=== PATIENT | male | born 1990 | race Caucasian/White ===

== ENCOUNTER 2017-02-24 21:24 | Emergency (ER) | payer MEDICAID ==
[~2017-02-24] VITALS: Ht 175.3 cm; Wt 100.0 kg
[~2017-02-24 21:24] MED LIST: KEPPRA500 MG PO; LEVETIRACETAM500 M1 PO; ZITHROMAX200 MG/5 M PO
[2017-02-24 22:19] LABS: HEMATOCRIT 58.4 % (39.0-50.0); HEMOGLOBIN 18.7 g/dl (14.0-18.0); IMMATURE GRANULOCYTES 4.7 % (0.0-1.0); MEAN CELL VOLUME 91.1 fL CALC (80.0-100.0); MEAN CORPUSCULAR HGB 29.2 pG CALC (26.0-32.0); NEUT# 20.48 thou/uL (1.82-7.42); RED BLOOD COUNT 6.41 mill/uL (4.70-6.10); RED CELL DISTRI WIDTH 12.1 % (11.5-15.5)
[2017-02-24 22:21] LABS: ALBUMIN 4.2 g/dL (3.2-5.0); BILIRUBIN, TOTAL 0.5 mg/dL (0.0-1.4); CALCIUM 9.6 mg/dL (8.4-10.2); CREATININE 1.8 mg/dL (0.7-1.3); TOTAL PROTEIN 6.8 g/dL (6.3-8.2)
[2017-02-24 22:26] LABS: POTASSIUM 5.2 mmol/l (3.5-5.1)
[2017-02-24 23:02] LABS: URINE BILIRUBIN - DIPSTICK NEGATIVE (NEGATIVE); URINE BLOOD DIPSTICK LARGE (NEGATIVE); URINE CLARITY SLIGHT CLOUDY; URINE COLOR YELLOW; URINE GLUCOSE - DIPSTICK NEGATIVE (NEGATIVE); URINE KETONE NEGATIVE (NEGATIVE); URINE LEUK ESTERASE NEGATIVE (NEGATIVE); URINE NITRITE - DIPSTICK NEGATIVE (Negative); URINE PH 5.5 (4.5-8.0); URINE PROTEIN - DIPSTICK 100 mg/dL (NEG-TRACE); URINE SPECIFIC GRAVITY >=1.030; URINE UROBILINOGEN - DIPSTICK 0.2 E.U./dL (0.2)
[2017-02-24 23:05] LABS: BARBITURATES NEGATIVE (NEGATIVE); COCAINE NEGATIVE (NEGATIVE); METHADONE NEGATIVE (NEGATIVE); OXCYCODONE NEGATIVE (NEGATIVE); TETRAHYDROCANNABIONOL NEGATIVE (NEGATIVE); TRICYLIC ANTIDEPRESSANTS NEGATIVE (NEGATIVE)
[2017-02-24 23:11] LABS: URINE BACTERIA FEW hpf; URINE COARSE GRANULAR CAST FEW lpf; URINE FINE GRAN CAST FEW lpf; URINE SQUAMOUS EPITHELIAL CELL FEW EPI/hpf (0-FEW); URINE WBC 0-2 WBC/hpf (0-5)
[2017-02-24 23:40] VITALS: BP 124/57
== END 2017-02-24 23:40 | disposition short-term general hospital (02) | DRG 100 ==
LOC: ED 21:24
PROVIDERS: Emergency Medicine
PROC: 0T9B70Z Drainage of Bladder with Drainage Device, Via Natural or Artificial Opening (ICD-10-PCS; principal; 2017-02-24)
PROC: 0BH17EZ Insertion of Endotracheal Airway into Trachea, Via Natural or Artificial Opening (ICD-10-PCS; 2017-02-24)
DX: G40.909 Epilepsy, unspecified, not intractable, without status epilepticus (principal); J96.90 Respiratory failure, unspecified, unspecified whether with hypoxia or hypercapnia; E87.2 Acidosis; I95.9 Hypotension, unspecified; Q04.6 Congenital cerebral cysts; D72.829 Elevated white blood cell count, unspecified; R79.89 Other specified abnormal findings of blood chemistry; R00.0 Tachycardia, unspecified; H54.8 Legal blindness, as defined in USA
CPT/HCPCS: J1953; J2060; S0164

== ENCOUNTER → 2018-07-23 | Outpatient (REF) | payer MEDICAID | END | disposition home or self-care (01) | LOC: LABSPEC 11:30 | PROVIDERS: ATTEND Psychiatry & Neurology Neurology with Special Qualifications in Child Neurology | DX: G40.814 Lennox-Gastaut syndrome, intractable, without status epilepticus (principal) ==

== ENCOUNTER → 2018-08-01 | Outpatient (REF) | payer MEDICAID ==
[2018-08-01 17:49] LABS: BILIRUBIN, TOTAL 0.7 mg/dL (0.0-1.4)
== END | disposition home or self-care (01) ==
LOC: LABSPEC 16:58
PROVIDERS: ATTEND Psychiatry & Neurology Neurology with Special Qualifications in Child Neurology
DX: G40.309 Generalized idiopathic epilepsy and epileptic syndromes, not intractable, without status epilepticus (principal)

== ENCOUNTER 2021-09-19 06:17 | Emergency (ER) | payer MEDICAID ==
[2021-09-19] VITALS (7 sets, daily range): BP systolic 116–141; BP diastolic 66–102
[~2021-09-19] VITALS: Ht 175.3 cm; Wt 97.5 kg
[2021-09-19 06:47] LABS: IMMATURE GRANULOCYTES 0.8 % (0.0-5.0); MEAN CELL VOLUME 90.8 fL CALC (80.0-100.0); MEAN CORPUSCULAR HGB 30.3 pG CALC (26.0-32.0); MEAN CORPUSCULAR HGB CONC 33.3 g/dL CAL (32.0-36.0); NEUT# 8.23 thou/uL (1.82-7.42); RED BLOOD COUNT 6.28 mill/uL (4.70-6.10); RED CELL DISTRI WIDTH 12.5 % (11.5-15.5)
[2021-09-19 07:45] LABS: ALBUMIN 4.4 g/dL (3.2-5.0); ALKALINE PHOSPHATASE 84 u/l (38-126); ANION GAP 17 (6-22 (CALC)); BILIRUBIN, TOTAL 0.5 mg/dL (0.0-1.4); BUN 19 mg/dL (9-20); BUN/CREATININE RATIO 19 (12-20 (CALC)); CARBON DIOXIDE 20 mmol/l (22-30); CHLORIDE 107 mmol/l (95-108); GFR > 60 ML/MIN (>=60 (CALC)); GFR FOR AFR.AMER. > 60 ML/MIN (>=60 (CALC)); POTASSIUM 4.1 mmol/l (3.5-5.1); SODIUM 140 mmol/l (137-146); TOTAL PROTEIN 7.5 g/dL (6.3-8.2)
[2021-09-19 07:52] LABS: SGOT/AST 42 u/l (17-59)
--- NOTE | 2021-09-21 08:13 | NUR ---
PRELIMINARY BC SHOWS GRAM (+) COCCI IN 1/ VIALS. RESULTS REPORTED TO DR WITT. WILL FOLLOW UP WHEN FINAL RESULTS AVAILABLE.
--- NOTE | 2021-09-22 14:34 | NUR ---
FINAL RESULTS CALED TO , 1 VIAL GROWING STREPTOCOCCUS PNEUMONIAE. A MESSAGE WAS LEFT WITH THE NUMBER ON FILE TO BRING THE PATIENT BACK TO THE ER FOR TREATMENT.
--- NOTE | 2021-09-22 15:20 | NUR ---
PATIENTS MOTHER CALLED BACK AND WILL BRING HIM TO ER.
== END 2021-09-19 08:21 | disposition home or self-care (01) ==
LOC: ED 06:17
PROVIDERS: Emergency Medicine
DX: G40.409 Other generalized epilepsy and epileptic syndromes, not intractable, without status epilepticus (principal); R73.9 Hyperglycemia, unspecified
CPT/HCPCS: J1953

== ENCOUNTER 2021-09-22 15:22 | Emergency (ER) | payer MEDICAID ==
[~2021-09-22] VITALS: Ht 172.7 cm; Wt 89.3 kg
[2021-09-22] VITALS (10 sets, daily range): BP systolic 108–132; BP diastolic 72–89
[2021-09-22 16:18] LABS: HEMATOCRIT 51.3 % (39.0-50.0); HEMOGLOBIN 17.1 g/dl (14.0-18.0); IMMATURE GRANULOCYTES 1.1 % (0.0-5.0); MEAN CELL VOLUME 90.3 fL CALC (80.0-100.0); MEAN CORPUSCULAR HGB 30.1 pG CALC (26.0-32.0); MEAN CORPUSCULAR HGB CONC 33.3 g/dL CAL (32.0-36.0); NEUT# 6.58 thou/uL (1.82-7.42); RED BLOOD COUNT 5.68 mill/uL (4.70-6.10)
[2021-09-22 16:28] LABS: ALBUMIN 3.8 g/dL (3.2-5.0); ALKALINE PHOSPHATASE 65 u/l (38-126); ANION GAP 13 (6-22 (CALC)); BILIRUBIN, TOTAL 0.7 mg/dL (0.0-1.4); BUN 11 mg/dL (9-20); BUN/CREATININE RATIO 12 (12-20 (CALC)); CARBON DIOXIDE 22 mmol/l (22-30); CHLORIDE 107 mmol/l (95-108); CREATININE 0.9 mg/dL (0.7-1.3); GFR > 60 ML/MIN (>=60 (CALC)); GFR FOR AFR.AMER. > 60 ML/MIN (>=60 (CALC)); POTASSIUM 3.4 mmol/l (3.5-5.1); SGOT/AST 26 u/l (17-59); SODIUM 140 mmol/l (137-146); TOTAL PROTEIN 6.8 g/dL (6.3-8.2)
[2021-09-22] MEDS ORDERED: OMNICEF250 MG/5 M PO (18:26)
[2021-09-22] MEDS ORDERED: VIBRAMYCIN25 MG/5 ML PO (18:26)
== END 2021-09-22 20:00 | disposition home or self-care (01) ==
LOC: ED 15:22
PROVIDERS: Nurse Practitioner
DX: J20.9 Acute bronchitis, unspecified (principal); R78.81 Bacteremia; F20.9 Schizophrenia, unspecified; G40.909 Epilepsy, unspecified, not intractable, without status epilepticus; Q04.6 Congenital cerebral cysts; Z20.822 Contact with and (suspected) exposure to COVID-19

== ENCOUNTER 2022-12-31 00:51 | Emergency (ER) | payer MEDICAID ==
[~2022-12-31] VITALS: Ht 172.7 cm; Wt 89.0 kg
[~2022-12-31 00:51] MED LIST changes: +OMNICEF250 MG/5 M PO; +VIBRAMYCIN25 MG/5 ML PO
[2022-12-31] MEDS ORDERED: KEPPRA250 M1 PO (01:35)
[2022-12-31] MEDS ORDERED: EPIDIOLEX 100 MG/ML (01:36)
[2022-12-31] MEDS ORDERED: KLONOPIN2 MG PO (01:36)
[2022-12-31 02:20] VITALS: BP 134/77
== END 2022-12-31 02:25 | disposition home or self-care (01) ==
LOC: ED 00:51
DX: G40.409 Other generalized epilepsy and epileptic syndromes, not intractable, without status epilepticus (principal); R06.2 Wheezing